=== PATIENT | female | born 1975 | race Caucasian/White ===

== ENCOUNTER 2018-06-09 17:09 | Emergency (ER) | payer OTHER ==
[~2018-06-09] VITALS: Ht 167.6 cm; Wt 111.6 kg
[2018-06-09 17:26] VITALS: BP 136/85
--- NOTE | 2018-06-09 18:03 | NUR ---
For discharge- verbalized understanding Home ambulatory in stable condition
[2018-06-09] MEDS ORDERED: LIDOCAINE 1%-EPI 1:100,000 20 ML VIAL ONE (18:14)
== END 2018-06-09 18:05 | disposition home or self-care (01) ==
LOC: ER 17:12
DX: S09.8XXA Other specified injuries of head, initial encounter (principal); E11.9 Type 2 diabetes mellitus without complications; V49.49XA Driver injured in collision with other motor vehicles in traffic accident, initial encounter; Y93.89 Activity, other specified; Y92.413 State road as the place of occurrence of the external cause; Y99.8 Other external cause status
CPT/HCPCS: 99283; A6402; A6403; J3490